=== PATIENT | female | born 1995 | race Two or more races ===

== ENCOUNTER 2019-04-15 20:28 | Emergency (ER) | payer MEDICAID ==
[~2019-04-15] VITALS: Ht 165.1 cm; Wt 89.0 kg
[2019-04-15 21:08] VITALS: BP 108/80; Ht 165.1 cm; Wt 89.0 kg
== END 2019-04-15 23:57 | disposition home or self-care (01) ==
LOC: ED 20:28
DX: K64.8 Other hemorrhoids (principal); R11.2 Nausea with vomiting, unspecified; Z98.51 Tubal ligation status
CPT/HCPCS: Q0162

== ENCOUNTER 2020-02-21 21:54 | Emergency (ER) | payer MEDICAID ==
[~2020-02-21] VITALS: Ht 165.1 cm; Wt 90.3 kg
[2020-02-21 22:00] VITALS: Ht 165.1 cm; Wt 90.3 kg
[2020-02-21 23:30] VITALS: BP 106/75
== END 2020-02-21 23:30 | disposition home or self-care (01) ==
LOC: ED 21:54
DX: N76.4 Abscess of vulva (principal); Z98.51 Tubal ligation status